=== PATIENT | male | born 1995 | race Two or more races ===

== ENCOUNTER 2017-12-24 22:48 | Emergency (ER) | payer MEDICAID ==
[~2017-12-24] VITALS: Ht 172.7 cm; Wt 106.6 kg
[2017-12-24 23:09] VITALS: BP 151/79
[2017-12-25] MEDS ORDERED: HYDROcodone-ACET 10/325MG TAB PO ONE (01:45)
[2017-12-25] MEDS ORDERED: cefTRIAXone SOD 1,000 MG VL IM ONE (01:45)
== END 2017-12-25 01:45 | disposition home or self-care (01) ==
LOC: ER 22:51
DX: S76.011A Strain of muscle, fascia and tendon of right hip, initial encounter (principal); L05.91 Pilonidal cyst without abscess; X50.9XXA Other and unspecified overexertion or strenuous movements or postures, initial encounter; Y93.89 Activity, other specified; Y99.8 Other external cause status; Y92.89 Other specified places as the place of occurrence of the external cause
CPT/HCPCS: 72131; 96372; 99284; J0696